=== PATIENT | male | born 1990 | race Caucasian/White ===

== ENCOUNTER → 2016-08-06 | Outpatient (CLI) | payer BC ==
--- NOTE | 2016-08-06 09:06 | XR ---
EXAMINATION TYPE: XR chest 2V DATE OF EXAM: 08/06/2016 8:55 AM HISTORY: R05 cough. REFERENCE: Previous study dated 04/30/2002. FINDINGS: The lungs are clear. Pleural spaces are clear. Heart size is normal. IMPRESSION: NORMAL CHEST.
== END | disposition home or self-care (01) ==
LOC: RADXRMAIN 08:45
PROVIDERS: ATTEND Family Medicine
DX: R05 Cough (principal)
CPT/HCPCS: 71020